=== PATIENT | female | born 1940 | race Caucasian/White ===

== ENCOUNTER 2018-11-01 15:22 | Emergency (ER) | payer MEDICARE, OTHER ==
[2018-11-01] MEDS ORDERED: cefTRIAXone 1 GM Vial IVPUSH ONE (15:37)
[2018-11-01] MEDS ORDERED: Sodium Chloride 0.9% 10 ML Syringe FLUSH PRN (15:37)
[2018-11-01] MEDS ORDERED: Ondansetron 4 MG/2 ML SDV IVPUSH ONE (15:37)
--- NOTE | 2018-11-01 15:52 | EDM.PDOC ---
ED HPI GENERAL MEDICAL PROBLEM - General Chief Complaint: General Stated Complaint: NOT FEELING WELL SINCE SATURDAY MORNING Time Seen by Provider: 11/01/18 15:36 Source of Information: Reports: Patient History Limitations: Reports: No Limitations - History of Present Illness INITIAL COMMENTS - FREE TEXT/NARRATIVE: Patient comes to the ED with complaints of sinus congestion, headache, cough, SOB, nausea, fever and chills. No vomiting, no blood in urine or stools. Does have abdominal pain from coughing and dry heaving. She does doctor in [place]. Was recently on vacation in [place] and started feeling ill Saturday when in [place]. She denies neck pain. No numbness, tingling, unilateral weakness , or other neuro complaints. Onset Date: 10/31/18 Duration: Getting Worse Location: Reports: Head, Neck, Chest, Abdomen Associated Symptoms: Reports: cough w sputum, Diaphoresis, Fever/Chills, Headaches, Nausea/Vomiting, Shortness of Breath Generalized Pain Score (Numeric/FACES): 2 - Related Data Allergies Allergy/AdvReac Type Severity Reaction Status Date / Time doxycycline Allergy Vomiting Verified 11/01/18 16:27 metoclopramide [From Reglan] Allergy Facial Verified 11/01/18 16:27 Swelling prochlorperazine Allergy Facial Verified 11/01/18 16:27 [From Compazine] Swelling Home Meds: Home Meds Famotidine [Pepcid] 20 mg PO DAILY 11/01/18 [History] Zolpidem Tartrate [Ambien] 5 mg PO BEDTIME 11/01/18 [History] ED ROS GENERAL - Review of Systems Review Of Systems: See Below Constitutional: Reports: Fever, Chills HEENT: Reports: Sinus Problem, Throat Pain Respiratory: Reports: Shortness of Breath, Cough, Sputum Cardiovascular: Reports: Chest Pain Endocrine: Reports: No Symptoms GI/Abdominal: Reports: Abdominal Pain, Difficulty Swallowing, Nausea : Reports: No Symptoms Musculoskeletal: Reports: No Symptoms Skin: Reports: Diaphoresis Neurological: Reports: Headache Psychiatric: Reports: No Symptoms Hematologic/Lymphatic: Reports: No Symptoms Immunologic: Reports: No Symptoms ED EXAM, GENERAL - Physical Exam Exam: See Below Exam Limited By: No Limitations General Appearance: Alert, WD/WN, Mild Distress Eye Exam: Bilateral Eye: EOMI, Normal Inspection, PERRL Ears: Normal TMs Throat/Mouth: Normal Inspection, Normal Lips, Normal Teeth, Normal Gums, Normal Oropharynx, No Airway Compromise Head: Atraumatic, Normocephalic Neck: Normal Inspection, Supple, Tender Lateral Respiratory/Chest: No Respiratory Distress, Lungs Clear, Normal Breath Sounds, No Accessory Muscle Use, Chest Non-Tender Cardiovascular: Normal Peripheral Pulses, Regular Rate, Rhythm, No Edema, No Gallop, No Murmur Peripheral Pulses: 2+: Posterior Tibial (L), Posterior Tibial (R), Dorsalis Pedis (L), Dorsalis Pedis (R) GI/Abdominal: Normal Bowel Sounds, No Distention Back Exam: Normal Inspection, Full Range of Motion, NT Extremities: Normal Inspection, Normal Range of Motion, Non-Tender, Normal Capillary Refill, No Pedal Edema Neurological: Alert, Oriented, CN II-XII Intact, Normal Cognition, Normal Gait, Normal Reflexes, No Motor/Sensory Deficits Psychiatric: Normal Affect, Normal Mood Skin Exam: Warm, Dry, Intact, Normal Color, No Rash Lymphatic: No Adenopathy EKG INTERPRETATION EKG Date: 11/01/18 Time: 16:08 Rhythm: NSR Rate (Beats/Min): 72 [place]: Normal P-Wave: Present QRS: Normal ST-T: Normal QT: Normal Comparison: NA - No Prior EKG EKG Interpretation Comments: sinus rhythm Course - Vital Signs Last Recorded V/S: Last Vital Signs Temp 37.7 C 11/01/18 18:45 Pulse 72 11/01/18 18:45 Resp 16 11/01/18 18:45 BP 124/70 11/01/18 18:45 Pulse Ox 99 11/01/18 18:45 - Orders/Labs/Meds Orders: Active Orders 24 hr Category Date Time Status EKG 12 Lead [EKG Documentation Completion] [RC] STAT Care 11/01/18 15:41 Active CULTURE BLOOD [BC] Stat Lab 11/01/18 15:45 Received CULTURE BLOOD [] Stat Lab 11/01/18 15:56 Received CULTURE STREP A CONFIRMATION [] Stat Lab 11/01/18 15:58 Results CULTURE URINE [] Stat Lab 11/01/18 16:20 Received STREP SCRN A RAPID W CULT CONF [] Stat Lab 11/01/18 15:58 Results Blood Culture x2 Reflex Set [OM.PC] Stat Oth 11/01/18 15:37 Ordered Saline Lock Insert [OM.PC] Routine Ot 11/01/18 15:37 Ordered Labs: Laboratory Tests 11/01/18 11/01/18 11/01/18 Range/Units 15:45 15:45 15:45 WBC 8.2 (4.0-10.0) x10^3/uL RBC 3.97 L (4.00-5.50) x10^6/uL Hgb 11.8 L (12.0-16.0) g/dL Hct 35.1 (33.0-47.0) % MCV 88.4 (78.0-93.0) fL MCH 29.7 (26.0-32.0) pg MCHC 33.6 (32.0-36.0) g/dL RDW Coeff of Serafin 13.7 (10.0-15.0) % Plt Count 200 (130-400) x10^3/uL Neut % (Auto) 75.9 (50.0-80.0) % Lymph % (Auto) 11.3 L (25.0-50.0) % Wise % (Auto) 11.8 H (2.0-11.0) % Eos % (Auto) 0.9 (0.0-4.0) % Baso % (Auto) 0.1 L (0.2-1.2) % Sodium 138 (136-145) mmol/L Potassium 3.5 (3.5-5.1) mmol/L Chloride 102 (98-107) mmol/L Carbon Dioxide 23 (21-32) mmol/L Anion Gap 16.5 (10-20) mmol/L BUN 16 (7-18) mg/dL Creatinine 1.0 (0.55-1.02) mg/dL Est Cr Clr Drug Dosing 40.21 mL/min Estimated GFR (MDRD) 54 Glucose 87 (74-106) mg/dL Lactic Acid 1.2 (0.4-2.0) mmol/L Calcium 9.2 (8.5-10.1) mg/dL Corrected Calcium 9.76 (8.5-10.1) mg/dL Total Bilirubin 0.4 (0.2-1.0) mg/dL AST 24 (15-37) U/L ALT 19 (14-59) U/L Alkaline Phosphatase 82 (46-116) U/L C-Reactive Protein 5.6 H (<=0.9) mg/dL NT-Pro-B Natriuret Pep (<=450) pg/mL Total Protein 7.3 (6.4-8.2) g/dL Albumin 3.3 L (3.4-5.0) g/dL Globulin 4.0 Albumin/Globulin Ratio 0.83 Amylase 51 (25-115) U/L Lipase 133 (73-393) U/L Urine Color (YELLOW) Urine Appearance (CLEAR) Urine pH (5.0-8.0) Ur Specific [place] Urine Protein (NEGATIVE) mg/dL Urine Glucose (UA) (NEGATIVE) mg/dL Urine Ketones (NEGATIVE) mg/dL Urine Occult Blood (NEGATIVE) Urine Nitrite (NEGATIVE) Urine Bilirubin (NEGATIVE) Urine Urobilinogen (0.2) EU/dL Ur Leukocyte Esterase (NEGATIVE) Urine RBC (NOT SEEN) /HPF Urine WBC (NOT SEEN) /HPF Urine WBC Clumps Ur Squamous Epith Cells (NEGATIVE) /HPF Urine Bacteria (NEGATIVE) /HPF Urine Mucus (NEGATIVE) /LPF 11/01/18 11/01/18 Range/Units 15:45 16:20 WBC (4.0-10.0) x10^3/uL RBC (4.00-5.50) x10^6/uL Hgb (12.0-16.0) g/dL Hct (33.0-47.0) % MCV (78.0-93.0) fL MCH (26.0-32.0) pg MCHC (32.0-36.0) g/dL RDW Coeff of Serafin (10.0-15.0) % Plt Count (130-400) x10^3/uL Neut % (Auto) (50.0-80.0) % Lymph % (Auto) (25.0-50.0) % Wise % (Auto) (2.0-11.0) % Eos % (Auto) (0.0-4.0) % Baso % (Auto) (0.2-1.2) % Sodium (136-145) mmol/L Potassium (3.5-5.1) mmol/L Chloride (98-107) mmol/L Carbon Dioxide (21-32) mmol/L Anion Gap (10-20) mmol/L BUN (7-18) mg/dL Creatinine (0.55-1.02) mg/dL Est Cr Clr Drug Dosing mL/min Estimated GFR (MDRD) Glucose (74-106) mg/dL Lactic Acid (0.4-2.0) mmol/L Calcium (8.5-10.1) mg/dL Corrected Calcium (8.5-10.1) mg/dL Total Bilirubin (0.2-1.0) mg/dL AST (15-37) U/L ALT (14-59) U/L Alkaline Phosphatase (46-116) U/L C-Reactive Protein (<=0.9) mg/dL NT-Pro-B Natriuret Pep 368 (<=450) pg/mL Total Protein (6.4-8.2) g/dL Albumin (3.4-5.0) g/dL Globulin Albumin/Globulin Ratio Amylase (25-115) U/L Lipase (73-393) U/L Urine Color Yellow (YELLOW) Urine Appearance Turbid H (CLEAR) Urine pH 6.0 (5.0-8.0) Ur Specific [place] 1.020 Urine Protein 30 H (NEGATIVE) mg/dL Urine Glucose (UA) Negative (NEGATIVE) mg/dL Urine Ketones 80 H (NEGATIVE) mg/dL Urine Occult Blood Trace-lysed H (NEGATIVE) Urine Nitrite Positive H (NEGATIVE) Urine Bilirubin Negative (NEGATIVE) Urine Urobilinogen 0.2 (0.2) EU/dL Ur Leukocyte Esterase Moderate H (NEGATIVE) Urine RBC 0-5 (NOT SEEN) /HPF Urine WBC 75-100 H (NOT SEEN) /HPF Urine WBC Clumps Few Ur Squamous Epith Cells Few H (NEGATIVE) /HPF Urine Bacteria Many H (NEGATIVE) /HPF Urine Mucus Few H (NEGATIVE) /LPF Meds: Medications Discontinued Medications Generic Name Dose Route Start Last Admin Trade Name Freq PRN Reason Stop Dose Admin Ceftriaxone Sodium 1 gm 11/01/18 15:37 11/01/18 15:56 Rocephin IVPUSH 11/01/18 15:38 1 gm STAT ONE Administration Ciprofloxacin 500 mg 11/01/18 17:16 11/01/18 17:28 Ciprofloxacin Hcl PO 11/01/18 17:17 500 mg ONETIME ONE Administration Ciprofloxacin 1 packet 11/01/18 17:21 11/01/18 17:28 Take Home: Ciprofloxacin 500 Mg, 2 Tab Pack PO 11/01/18 17:22 1 packet ONETIME ONE Administration Sodium Chloride 1,000 mls @ 999 mls/hr 11/01/18 15:45 11/01/18 17:16 Normal Saline IV 999 mls/hr ASDIRECTED CELY Administration Sodium Chloride 1,000 mls @ 999 mls/hr 11/01/18 17:15 Normal Saline IV ASDIRECTED CELY Ondansetron HCl 4 mg 11/01/18 15:37 11/01/18 15:54 Zofran IVPUSH 11/01/18 15:38 4 mg ONETIME ONE Administration Ondansetron HCl 1 packet 11/01/18 17:10 11/01/18 17:16 Take Home: Ondansetron Odt 4 Mg, 2 Tab Pack PO 11/01/18 17:11 1 packet ONETIME ONE Administration Oseltamivir Phosphate 75 mg 11/01/18 17:00 11/01/18 17:16 Tamiflu PO 11/01/18 17:01 75 mg ONETIME ONE Administration Oseltamivir Phosphate 1 packet 11/01/18 17:21 11/01/18 17:28 Take Home: Oseltamivir 75 Mg Cap, 2 Cap Pack PO 11/01/18 17:22 1 packet ONETIME ONE Administration Sodium Chloride 10 ml 11/01/18 15:37 Saline Flush FLUSH ASDIRECTED PRN Keep Vein Open - Re-Assessments/Exams Free Text/Narrative Re-Assessment/Exam: 11/01/18 17:06 Postitive influenza A 11/01/18 17:18 Urine also positive for infection Departure - Departure Time of Disposition: 18:10 Disposition: Home, Self-Care 01 Condition: Fair Clinical Impression: Influenza - Discharge Information *PRESCRIPTION DRUG MONITORING PROGRAM REVIEWED*: Not Applicable *COPY OF PRESCRIPTION DRUG MONITORING REPORT IN PATIENT TAMMY: Not Applicable Instructions: Influenza, Adult, [id number], Viral Respiratory Infection, Easy -To-Read, Ciprofloxacin tablets, Probiotics Referrals: PCP,Not In Area [Primary Care Provider] - Forms: ED Department Discharge Additional Instructions: Plan 1. Stay well hydrated 2. Take the Tamiflu twice a day until gone. This does not cure the Influenza but may help make the symptoms less severe. 3. If your symptoms worsen over the next 1-2 days, come back into the ED and we can directly admit you to the floor for fluids and observation 4. You also have a urinary infection. Take Cipro 500 mg twice a day for 10 days. Take a probiotic or eat 1-2 servings of yogurt to prevent a bacterial infection of the colon. 5. Please call if you have any additional questions or concerns - Problem List & Annotations (1) Influenza SNOMED Code(s): 7368526 Code(s): J11.1 - FLU DUE TO UNIDENTIFIED INFLUENZA VIRUS W OTH RESP MANIFEST Status: Acute Priority: Medium - Problem List Review Problem List Initiated/Reviewed/Updated: Yes - My Orders Last 24 Hours: My Active Orders 11/01/18 15:37 Blood Culture x2 Reflex Set [OM.PC] Stat Saline Lock Insert [OM.PC] Routine 11/01/18 15:41 EKG 12 Lead [EKG Documentation Completion] [RC] STAT 11/01/18 15:45 CULTURE BLOOD [BC] Stat 11/01/18 15:56 CULTURE BLOOD [BC] Stat 11/01/18 15:58 CULTURE STREP A CONFIRMATION [RM] Stat STREP SCRN A RAPID W CULT CONF [RM] Stat 11/01/18 16:20 CULTURE URINE [RM] Stat - Assessment/Plan Last 24 Hours: My Active Orders 11/01/18 15:37 Blood Culture x2 Reflex Set [OM.PC] Stat Saline Lock Insert [OM.PC] Routine 11/01/18 15:41 EKG 12 Lead [EKG Documentation Completion] [RC] STAT 11/01/18 15:45 CULTURE BLOOD [BC] Stat 11/01/18 15:56 CULTURE BLOOD [BC] Stat 11/01/18 15:58 CULTURE STREP A CONFIRMATION [RM] Stat STREP SCRN A RAPID W CULT CONF [RM] Stat 11/01/18 16:20 CULTURE URINE [RM] Stat Assessment:: Influenza A Plan: Plan 1. Stay well hydrated 2. Take the Tamiflu twice a day until gone. This does not cure the Influenza but may help make the symptoms less severe. 3. If your symptoms worsen over the next 1-2 days, come back into the ED and we can directly admit you to the floor for fluids and observation 4. You also have a urinary infection. Take Cipro 500 mg twice a day for 10 days. Take a probiotic or eat 1-2 servings of yogurt to prevent a bacterial infection of the colon. 5. Please call if you have any additional questions or concerns
[2018-11-01] MEDS: Sodium Chloride 0.9% 1,000 ML IV SCH ×2 (15:54→17:16)
--- NOTE | 2018-11-01 16:06 | CR ---
[id number] RAD/RAD Chest PA or AP 1V EXAM: FRONTAL CHEST INDICATION: Cough, fever and shortness of breath. COMPARISON: None. DISCUSSION: The heart is at upper limits of normal for size without evidence of congestive heart failure. Mild tortuosity of the thoracic aorta. No acute infiltrates are identified. IMPRESSION: 1. No acute findings. Neo Manzo MD 11/01/18 [id number] Thank you for allowing us to participate in the care of your patient.
[2018-11-01 16:55] LABS: ANION GAP 16.5 mmol/L (10-20)
[2018-11-01] MEDS ORDERED: Oseltamivir 75 MG Cap PO ONE (17:00)
[2018-11-01] MEDS ORDERED: Take Home: Ondansetron 4 MG Tab.DIS, 2 Tab Pack PO ONE (17:10)
[2018-11-01] MEDS ORDERED: Sodium Chloride 0.9% 1,000 ML IV SCH (17:15)
[2018-11-01] MEDS ORDERED: Ciprofloxacin 500 MG Tab PO ONE (17:16)
[2018-11-01] MEDS ORDERED: Take Home: Oseltamivir 75 MG Cap, 2 Cap Pack PO ONE (17:21)
[2018-11-01] MEDS ORDERED: Take Home: Ciprofloxacin 500 MG Tab, 2 Tab Pack PO ONE (17:21)
== END 2018-11-01 18:45 | disposition home or self-care (01) ==
LOC: VM.ED 15:22
DX: J10.1 Influenza due to other identified influenza virus with other respiratory manifestations (principal); Z88.1 Allergy status to other antibiotic agents; Z88.8 Allergy status to other drugs, medicaments and biological substances; Z79.899 Other long term (current) drug therapy
CPT/HCPCS: 36415; 71045; 80053; 81001; 82150; 83605; 83690; 83880; 85025; 86140; 87040; 87081; 87086; 87088; 87186; 87804; 87804-59; 87880-QW; 93005; 93010; 96361; 96374; 96375; 99283-GF; 99284-25; A9270-GY; J0696; J2405; J7030